=== PATIENT | male | born 1965 | race Caucasian/White ===

== ENCOUNTER → 2018-02-24 11:22 | Outpatient (CLI) | payer BC, SELFPAY ==
[2018-02-24 14:16] LABS: AST(SGOT) 22 U/L (15-37); Alanine Aminotransfer ALT/SGPT 37 U/L (16-61); Anion Gap 10 (5-15); BUN 12 mg/dL (7-18); BUN/Creat Ratio 15.9 RATIO (10-20); Calcium,Total 9.2 mg/dL (8.5-10.1); Chloride 103 mmol/L (98-107); Cholesterol 192 mg/dL (200); Creatinine, Serum 0.76 mg/dL (0.70-1.30); EST Glomerular Filtration Rate 115 mL/min (>60); Est Glom Filt Rate - Afr Amer 140 mL/min (>60); Glucose 114 mg/dL (74-106); High Density Lipoprotein 58 mg/dL; Potassium 3.8 mmol/L (3.5-5.1); Sodium Level 140 mmol/L (136-145); Triglycerides 310 mg/dL; Very Low Density Lipoprotein 62 mg/dL (5-40)
== END ==
PROVIDERS: Family Provider Family Medicine; PCP Family Medicine; Visit Provider Family Medicine
DX: I10 Essential (primary) hypertension (principal); E78.00 Pure hypercholesterolemia, unspecified; Z12.5 Encounter for screening for malignant neoplasm of prostate
CPT/HCPCS: 36415; 80048; 80061; 84153; 84450; 84460; G0103

== ENCOUNTER → 2018-03-04 11:25 | Outpatient (CLI) | payer BC, SELFPAY ==
[2018-03-04 14:43] LABS: Hemoglobin A1c 6.1 % (4.2-6.3)
== END ==
PROVIDERS: Family Provider Family Medicine; PCP Family Medicine; Visit Provider Family Medicine
DX: R73.09 Other abnormal glucose (principal)
CPT/HCPCS: 36415; 83036

== ENCOUNTER 2018-03-13 08:03 | Day surgery (SDC) | payer BC, SELFPAY ==
--- NOTE | 2018-03-13 | LES_PTH ---
PATIENT: JANET SOOD [place] [facility] [place][id number] AGE/SX: 52/M ROOM: RE03/13/[address]: Dr. Clifford Ventura MD : 1965 BED: DIS: 03/13/2018 SPEC #: [id number] RECD: 03/13/18 14:41 STATUS: BRETT REPearl #: [id number] FELICE: 03/13/18 00:[address]: Clifford Ventura DEPT: SURGICAL PATHOLOGY RECD BY: Mervin Tan ENTERED: 03/13/18 14:41 SP TYPE: Lesion OTHR DR: Dr. Cat Paulino MD Tissues: Skin of lip, NOS Procedures: Surgery Specimen Level IV HEADER OPERATION: Excision, lesion, lip PRE-OP DIAGNOSIS: Benign neoplasm of lip TISSUE SUBMITTED: Vascular lip lesion, lower lip MICROSCOPIC DIAGNOSIS Lower lip lesion, biopsy: Solar elastosis and mild hyperkeratosis. AM:jenna 03/16/18 MICROSCOPIC DESCRIPTION Slides are reviewed. GROSS DESCRIPTION Received in fixative is one container labeled with the patient's name and designated vascular lip lesion, lower lip. The specimen consists of a piece of john-pink mucosal tissue measuring 0.5 x 0.3 x 0.1 cm. The entire specimen is submitted in one cassette. / SJ:jenna 03/13/18 TC:5 CPT: 85751
[2018-03-13 08:35] VITALS: BP 142/94; PULSE 70; RESP 16; TEMP 36.6; O2SAT 99; BMI 27.6
[2018-03-13] MEDS: Bacitracin 500 UNITS/GM PACKET (10:15)
--- NOTE | 2018-03-13 10:37 | OP.PCM_ITS ---
Problem List (1) Benign neoplasm of lip Status: Chronic Report of Operation Date of Procedure: 03/13/18 Pre-Operative Diagnosis: Bleeding lesion of lower lip Post-Operative Diagnosis: Vacular malformation lower lip Surgery/Procedure Performed:: Excision of lower lip lesion Description of Surgical Findings:: Eddy is a 52-year-old male presents valuation of a chronic intermittently bleed ing lesion of the left lower lip. He denies any prior trauma or injury to the site. There is no ulceration or pain. He reports that this would bleed quite vigorously shooting blood up onto his bathroom mirror that at times took several hours to stop. Examination showed a punctate and vascular lesion on the left lower lip without ulceration or palpable mass. Given the extensive bleeding after operative excision for both treatment and identification was offered and he is agreeable to proceed. The risks, alternatives, potential benefits, and complications were discussed at length and any questions answered to the patient and/or caregiver's satisfaction. Witnessed informed consent was obtained in the office, and the patient and/or caregiver was agreeable to proceed. Procedure went as follows: The patient was identified in the preoperative holding brought to the operating room where he was positioned on the operative table. The lower lip site was prepped with Betadine prep solution and then injected with 1% lidocaine with 100,000 epinephrine for a total of 2 cc. Just to the left of the midline on the lower lip was a punctate vascular lesion this was then incised in an ellipse 3 x 6 mm in length. Dissection was then carried down deeply to the muscularis layer where the lesion was then clamped at its vascular pedicle and ligated with a 3-0 Vicryl suture. The excision was then sent for pathologic evaluation. The wound was then closed deeply with interrupted 3-0 Vicryl sutures and bacitracin applied to the wound edge. The patient was then returned to recovery having tolerated the procedure well with findings consistent with a vascular malformation of the lower lip pending pathologic evaluation. Type of Anesthesia:: Local Special Medications: none Specimen's removed: lower lip lesion Estimated Blood Loss (mL): 0 mL Fluids Replaced: 0 mL Grafts/Implants Used: none - Complications none - Admit VTE Documentation VTE Present on Admission: No VTE Mechan Device Prophylaxis: None VTE Pharm Prophylaxis ordered?: No Reason prophylaxis not ordered:: Procedure Not Indicated
--- NOTE | 2018-03-13 10:40 | DCINST_ITS ---
- Discharge Diagnoses Current Active Problems: Current Active and Chronic Problems (Last Reviewed 06/20/17 @ 09:00 by Azam Piper) Benign neoplasm of lip (Chronic) You will use the following diet at home:: No restrictions Discharge Activity: Return to Normal Activity Call your doctor if your incision/area has: Continuous Slow Oozing, Foul Smelling Discharge Call your doctor if you observe: Fever of 101 or Higher, Uncontrolled pain Allergies/Adverse Reactions: Allergies No Known Allergies Allergy (Verified 06/20/17 08:59) Medications to take at Discharge Atorvastatin Calcium [Lipitor] 40 mg PO QHS 09/21/15 Primary Care Physician: Cat Paulino MD [Primary Care Provider] - Test Results: Test results from this visit will be discussed in further detail at your follow- up appointment, if applicable. Please Follow Up With: Clifford Ventura MD When: 1 week
[2018-03-13 10:45] VITALS: BP 142/94; BP 149/95; PULSE 69; RESP 14; TEMP 36.8; O2SAT 100
== END 2018-03-13 11:05 | disposition home or self-care (01) ==
LOC: SDC 08:03 → AC 08:04
PROVIDERS: Family Provider Family Medicine; PCP Family Medicine; Referring Provider Otolaryngology; Visit Provider Otolaryngology
PROC: (CPT 11441; principal; 2018-03-13 09:30)
DX: L57.8 Other skin changes due to chronic exposure to nonionizing radiation (principal); L85.9 Epidermal thickening, unspecified
CPT/HCPCS: 11441; 88305

== ENCOUNTER → 2019-01-05 08:06 | Outpatient (CLI) | payer OTHER, SELFPAY ==
[2019-01-05 08:05] VITALS: BMI 29.2
--- NOTE | 2019-01-05 08:08 | RAD_ITS ---
STUDY: X-RAY - LEFT KNEE REASON FOR EXAM: Male, 53 years old. Trauma TECHNIQUE: 4 view(s) of the knee. COMPARISON: None. FINDINGS: Normal visualized distal femur. Normal visualized proximal tibia and fibula. Normal proximal tibiofibular articulation. Normal medial femorotibial compartment. Normal lateral femorotibial compartment. Normal patellofemoral articulation. There is a wire-like foreign body in the soft tissues of the medial distal thigh. RAD/Knee 4 or More Views IMPRESSION: The osseous structures and articular surfaces of the left knee appear within normal limits. There is a wire-like foreign body in the soft tissues of the medial distal thigh. Electronically Signed: Khoa Bennett MD at 17:31 EDT , Service support ,
== END ==
PROVIDERS: Family Provider Family Medicine; PCP Family Medicine; Referring Provider Physician Assistant Surgical; Visit Provider Physician Assistant Surgical
DX: S86.912A Strain of unspecified muscle(s) and tendon(s) at lower leg level, left leg, initial encounter (principal)
CPT/HCPCS: 73564

== ENCOUNTER → 2019-01-12 07:40 | Outpatient (CLI) | payer OTHER, SELFPAY ==
[2019-01-12 07:35] VITALS: BMI 29.2
--- NOTE | 2019-01-12 07:43 | RAD_ITS ---
STUDY: X-RAY - LEFT KNEE REASON FOR EXAM: Joint pain after lifting heavy object. TECHNIQUE: 2 view(s) of the knee. COMPARISON: Radiographs 01/05/2019. FINDINGS: Normal visualized distal femur. Normal visualized proximal tibia and fibula. Normal proximal tibiofibular articulation. Normal medial femorotibial compartment. Normal lateral femorotibial compartment. Normal patellofemoral articulation. There is a metallic foreign body in the medial aspect of the distal thigh as on the prior study. RAD/Knee 1 or 2 Views IMPRESSION: Metallic foreign body. No interval change since 01/05/2019. Electronically Signed: Sixto Parra MD at 8:34 EDT Tel , Service support ,
== END ==
PROVIDERS: Family Provider Family Medicine; PCP Family Medicine; Referring Provider Physician Assistant Surgical; Visit Provider Physician Assistant Surgical
DX: S86.912A Strain of unspecified muscle(s) and tendon(s) at lower leg level, left leg, initial encounter (principal)
CPT/HCPCS: 73560

== ENCOUNTER → 2019-01-21 06:17 | Outpatient (CLI) | payer OTHER, SELFPAY ==
[2019-01-12 07:35] VITALS: BMI 29.2
--- NOTE | 2019-01-21 06:21 | MRI_ITS ---
STUDY: MRI LEFT KNEE REASON FOR EXAM: Medial knee pain since injury 01/04/2019. TECHNIQUE: Standardized fat and water weighted pulse sequences were obtained in all 3 orthogonal planes. COMPARISON: Radiographs 01/12/2019. FINDINGS: There is an oblique tear of the inferior articular surface of the posterior horn/posterior body of the medial meniscus (proton density coronal images 16-18; proton density sagittal image 6). There is mild peripheral subluxation of the medial meniscus. Normal hyaline cartilage of the medial femorotibial compartment. There is mild subchondral bone edema of the medial tibial plateau (T2 coronal images 18, 19), a stress phenomenon. There is a mild sprain of the superficial fibers of the medial collateral ligament (T2 coronal image 18). Normal distal semimembranosus, gracilis and semitendinosus tendons. Normal lateral meniscus. Normal hyaline cartilage of the lateral femorotibial compartment. Normal lateral femoral condyle and tibial plateau. Normal proximal tibiofibular articulation. Normal lateral collateral (fibular) ligament. Normal popliteus tendon. Normal biceps femoris tendon. Normal anterior cruciate ligament (ACL). Normal posterior cruciate ligament (PCL). Normal congruent patellofemoral articulation. There is low-grade chondromalacia patellae (T2 axial image 9). Normal medial and lateral patellar retinaculum. Normal visualized quadriceps tendon. Normal patellar tendon. Normal Hoffa's fat pad. There is a small joint effusion. There is a thickened medial patellar plica (T2 axial images 9-11). There is a small popliteal cyst (T2 sagittal images 5-7). There is mild edema in the anterior subcutis adipose space. The otherwise visualized osseous structures are unremarkable. MRI/Lower Ext Joint Only (Routine) IMPRESSION: Medial meniscal tear. Mild sprain of the medial collateral ligament. Mild subchondral bone edema of the medial tibial plateau, a stress phenomenon. Low-grade chondromalacia patellae. Thickened medial patellar plica. Small joint effusion. Small popliteal cyst. Electronically Signed: Sixto Parra MD at 7:52 EDT Tel , Service support ,
== END ==
PROVIDERS: Family Provider Family Medicine; PCP Family Medicine; Referring Provider Physician Assistant Surgical; Visit Provider Physician Assistant Surgical
DX: S86.912A Strain of unspecified muscle(s) and tendon(s) at lower leg level, left leg, initial encounter (principal)
CPT/HCPCS: 73721

== ENCOUNTER 2019-03-03 10:40 | Day surgery (SDC) | payer OTHER, SELFPAY ==
[2019-02-11 08:57] VITALS: BMI 29.2
--- NOTE | 2019-02-11 10:39 | HP_ITS ---
I have re-examined the patient. There are no clinical changes since date of exam. Intake Vital Signs 02/11/19 Body Mass Index (BMI) 29.2 Intake Visit Reasons: LEFT KNEE Chief Complaint: left knee pain Allergies No Known Allergies Allergy (Verified 01/22/19 07:36) Medications Atorvastatin Calcium [Lipitor] 40 mg PO QHS 09/21/15 [History Confirmed 02/11/19] lisinopril 20 mg tablet PO #90 tab 01/05/19 [History Confirmed 02/11/19] PFSH Medical History (Updated 01/05/19 @ 08:07 by Cara Loera) Hypertension (Chronic) Surgical History (Updated 01/05/19 @ 08:07 by Cara Loera) History of ankle surgery (Acute) S/P cervical spinal fusion (Inactive) Social History (Updated 02/11/19 @ 15:35 by Kami Fraser DO) Smoking Status: Never smoker alcohol intake: current HPI LEFT KNEE: Surgical H&P: Yes Details: Parts of this documentation were recorded by a scribe, this documentation accurately reflects the service provided and the decisions made by me, Kami Fraser DO 02/11/19 1868. JANET SOOD is a 53 year old [facility] patient here today for left knee injury. 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 States that on 01/04/19 he was volunteering and he was lifting a 300 lb man down the stair in a stair chair and he states that when he had all his weight on his leg leg he felt a pop and tearing over the medial side of his knee. [facility] then [facility]. Patient has pain over his medial left knee. Patient has had x-rays and an MRI of his left knee. Denies any PT and denies any injections. Denies numbness, tingling or other associated symptoms. Patient wishes to have a permanent form of relief from his knee pain. ROS Musc Reports joint pain, Reports joint swelling, Denies numbness, Denies radiating pain into limb, Denies stiffness, Denies tingling Skin/Breast Denies redness, Denies lesions, Denies itching, Denies rash, Denies skin swelling Neuro No numbness, No radiating pain, No tingling Ortho Exam Left Knee Skin/Wound: Yes swelling Contralateral Normal: Yes Homans Sign: No Knee ROM: Yes ROM-Extension -20 to 0, No ROM-Flexion 0-140 Examination: Yes med jt line tenderness, Yes Pain with flexion No rales rhonchi wheezing, no abdominal pain, no audible bruits Assessment & Plan Problems 1. Strain of left knee, initial encounter S86.594Z Plan Personally reviewed the MRI and explained that he has a meniscus tear with dain edema from the injury when the bones collide, his treatment option is a knee arthroscopy for debridement or repair depending on the tear location. Will request the surgery, the code for meniscus tear was requested on 01/22/19 by the [facility]. Reviewed the post op aching that may remain after surgery but the sharp pain and catching with twisting should be resolved. Explained the chondroplasty procedure to aid in bone healing and overall health of the knee in the intermediate accountant. We will sign consent today and if the surgery is denied we can have him return to discuss other options. Reviewed the pre-operative plans with the patient. Risks and benefits of the procedure were fully explained, including but not limited to infection, neurovascular injury, continued pain, arthritis, stiffness, need for further surgery, re-injury, DVT, PE, general risks of anesthesia, and loss of limb or life. The patient understands all the risks and does wish to proceed with written consent. Follow up post op or sooner if pain, swelling, numbness or associated symptoms, or concerns develop. All questions answered. Patient in agreement of plan. Coding Level of Care Code Off vis,new,level 3 Diagnoses Strain of left knee, initial encounter S86.912A ??Encounter type: initial encounter 02/11/19 1535 <Electronically signed by Kami green DO> Date _ Kami Fraser DO
[2019-03-03 11:12] VITALS: BP 145/89; PULSE 71; RESP 16; TEMP 36.8; O2SAT 98; BMI 29.0
[2019-03-03] MEDS: Lactated Ringers 1,000 ML 100 ML IV ×2 (11:50→14:05)
[2019-03-03] MEDS: Cefazolin 2 GM in 0.9% Normal Saline 100 ML IV (12:52)
--- NOTE | 2019-03-03 13:12 | RAD_ITS ---
STUDY: X-RAY - LEFT KNEE REASON FOR EXAM: Male, 53 years old. Intraoperative digital documentation images microinternal fixation/subchondral plasty. TECHNIQUE: A single frontal digital documentation view(s) of the knee. COMPARISON: None. FINDINGS: Single view shows surgical pin medially with the tip projected into the medial tibial plateau. The soft tissue structures are unremarkable. RAD/Knee 1 or 2 Views IMPRESSION: Intraoperative digital documentation image as described. Electronically Signed: Hero Galvan MD at 14:55 EST , Service support ,
[2019-03-03] MEDS: Epinephrine (1 mg/ml) 1 MG/ML VIAL (13:25)
[2019-03-03] MEDS: Mupirocin Ointment 22gm Tube 1 APPLIC (14:19)
[2019-03-03] MEDS: Bupiv/Epi 0.25% 30 ML Vial (14:19)
--- NOTE | 2019-03-03 14:35 | PCM.DC.ORTHO ---
Discharge Diet: No Restrictions - nwb left leg for 2 weeks, may remove dressings and apply bandaids to incision sites at pod4, may get incision wet pod4, follow up in 2 weeks, call with concerns, ice/elevate toes above nose/ ankel pumps as much as indicated Discharge Activity: May Not Drive May shower in (days): 1 Ice area for (Minutes): 20 - Every hour while awake. Weight Bearing Status: Weight bearing as tolerated Keep extremity elevated above heart level: Operative Extremity Call your doctor if your incision/area has: Continuous Slow Oozing, Sudden Increased Bleeding, Increased Pain/ Swelling, Increased Redness, Foul Smelling Discharge Call your doctor if you observe: Fever of 101 or Higher, Coldness, Increased Pain, Numbness or Tingling, Change in Color, Calf discomfort Allergies/Adverse Reactions: Allergies No Known Allergies Allergy (Verified 03/03/19 11:11) Medications to take at Discharge Atorvastatin Calcium [Lipitor] 40 mg PO QHS 09/21/15 lisinopril 20 mg tablet 20 mg PO DAILY #90 tab 01/05/19 Ondansetron [Zofran] 8 mg PO Q8H PRN PRN #20 tab 03/03/19 Oxycodone HCl/Acetaminophen [Percocet 5/325] 1 - 2 tablet PO Q6H PRN PRN 5 Days #28 tablet 03/03/19 The following prescriptions were given: Oxycodone HCl/Acetaminophen [Percocet 5/325] 1 - 2 tablet PO Q6H PRN PRN 5 Days #28 tablet PRN Reason: Pain Transmission Status: Sent to [facility] Ondansetron [Zofran] 8 mg PO Q8H PRN PRN #20 tab PRN Reason: Nausea Transmission Status: Pending to [facility]/pharmacy #[id number] Primary Care Physician: Cat Paulino MD [Primary Care Provider] - Test Results: Test results from this visit will be discussed in further detail at your follow-up appointment, if applicable. Please Follow Up With: Kami Fraser, - [phone]
--- NOTE | 2019-03-03 14:36 | OP.PCM_ITS ---
Report of Operation Date of Procedure: 03/03/19 Pre-Operative Diagnosis: left knee med meniscus tear, medial tibial pleateau stress edema Post-Operative Diagnosis: same Surgery/Procedure Performed:: salk, microinternal fixation medial tibial plateau, pmm, stroke program coordinator: Andrei Hooker Type of Anesthesia:: General Anesthesiologist: Ehsan Pollock Drains: see chart for TT Estimated Blood Loss (mL): min Fluids Replaced: 1100cc lr Description of Procedure: Preop note Patient is a 53-year-old male well-known to me. Patient has left knee pain after sustaining a twisting injury to his knee failed conservative treatment MRI confirms medial meniscus tear as well as a stress edema of the medial tibial plateau which results of the medial meniscus tear and his bones hitting together causing the edema where she is also having a considerable amount of pain preoperatively on physical examination. Negative Homans preop. Risk benefits and alternatives were discussed with patient. Risks include but not limited to blood loss, blood clot, infection, neurovascular, failure procedure, loss of life and loss of limb. Patient is aware of like proceed with left knee arthroscopy repair as indicated micro internal fixation of the medial tibial plateau. Operative note Patient seen and examined preoperative holding area. Left knee was marked. Patient brought to the operating room and placed supine on the operating table. Signed, anesthesia, antibiotics were administered. The left knee was prepped and draped usual sterile fashion with tourniquet around his upper thigh. All bony problems well-padded SCDs placed on his contralateral limb. We then marked out our portal placement the left leg was then elevated segmented to his wrist triggers rates her pressure 250 torr. We began our diagnostic arthroscopy by creating anterior lateral portal. Patellofemoral joint had some grade 2 fibrillative changes on the distal pole of patella as well as articulating on the trochlea. The moved to the medial joint, we created an anterior medial portal. The medial femoral condyle medial tibial plateau cartilage was intact and stable to probing. We then probed the medial meniscus which was torn however the root was itself was stable. We used a combination of a basket shaver to resect the unstable pieces then reinserted probe to ensure that we had stable remnant meniscus remaining which we did have. We then moved to the ACL PCL with present within the notch. There were no obvious cartilage defects in the lateral femoral condyle lateral tibial plateau and the lateral meniscus was intact and stable to probing.. Based on preoperative review of the patient's left knee MRI location of the bone marrow lesion consistent with insufficiency fracture of the medial tibial plateau was identified. Preoperative surgical planning allow for determination of the optimal method for assessing the lesion. Intraoperatively image fluoroscopy combined with bone target instruments from [employer] were used to guide surgical instruments into the proximity of the subchondral tibial plateau fracture. [employer] acupoint injection cannula was drilled into the subchondral bone. Standard repair methodology was used to treat the subchondral bone defect in the medial plateau tibial. We used image fluoroscopy was utilized to confirm accurate insertion of the acupoint injection cannula into the subchondral fracture. After insertion fracture stabilization was performed by injecting 1 cc of [employer] bone substitute material into the lateral tibial plateau. Image fluoroscopy was used to monitor the injection process and ensure injection of the bone substitute into the subchondral bone so that the bio material flowed into the fracture site to stabilize the fracture and facilitate fracture repair. We then moved back into the arthroscopy and visualized to make sure that we had no extravasation of the material which we did not. We further irrigated the knee with copious amounts of sterile saline. The portals were closed with interrupted 4-0 nylon stitches. Operative Pharmacy has prescription Told to be nonweightbearing on the left leg for 2 weeks Discussed with family We will give family pictures in 2 weeks Call with increased pain numbness tingling or further issues arise This note was generated with [employer] dictation software. It may contain incorrect words, spelling, and punctuation that were not noted in checking the note before signing.
[2019-03-03 14:38] VITALS: BP 142/81; BP 145/89; PULSE 84; RESP 16; TEMP 36.3; O2SAT 98
[2019-03-03 14:45] VITALS: BP 145/89; BP 147/88; PULSE 81; RESP 16; O2SAT 100
[2019-03-03 14:56] VITALS: BP 136/94; BP 145/89; PULSE 76; RESP 16; TEMP 36.3; O2SAT 100
[2019-03-03] MEDS: HYDROcodone Bitartrate/Apap 5/325 Tablet PO (15:15)
[2019-03-03 17:10] VITALS: BP 133/82; BP 145/89; PULSE 87; RESP 18; TEMP 36.9; O2SAT 99
== END 2019-03-03 17:30 | disposition home or self-care (01) ==
LOC: SDC 10:40 → AC 10:42
PROVIDERS: Family Provider Family Medicine; PCP Family Medicine; Referring Provider Orthopaedic Surgery; Visit Provider Orthopaedic Surgery
PROC: (CPT 29882; principal; 2019-03-03 13:35)
DX: S83.242A Other tear of medial meniscus, current injury, left knee, initial encounter (principal); X50.0XXA Overexertion from strenuous movement or load, initial encounter; Y93.9 Activity, unspecified; Y92.9 Unspecified place or not applicable; I10 Essential (primary) hypertension; E78.00 Pure hypercholesterolemia, unspecified; Z79.899 Other long term (current) drug therapy
CPT/HCPCS: 29855; 29881; 73560; 76000; C1713; J7120; J2405

== ENCOUNTER → 2019-04-14 08:44 | Outpatient (CLI) | payer BC, SELFPAY ==
[2019-04-13 09:41] VITALS: BMI 29.0
[2019-04-14 10:34] LABS: Anion Gap 7 (5-15); BUN 7 mg/dL (7-18); BUN/Creat Ratio 9.2 RATIO (10-20); Calcium,Total 8.6 mg/dL (8.5-10.1); Chloride 105 mmol/L (98-107); Cholesterol 164 mg/dL (200); Creatinine, Serum 0.76 mg/dL (0.70-1.30); EST Glomerular Filtration Rate 114 mL/min (>60); Est Glom Filt Rate - Afr Amer 138 mL/min (>60); Glucose 115 mg/dL (74-106); High Density Lipoprotein 54 mg/dL; Potassium 3.9 mmol/L (3.5-5.1); Sodium Level 141 mmol/L (136-145); Triglycerides 350 mg/dL; Very Low Density Lipoprotein 70 mg/dL (5-40)
== END ==
PROVIDERS: Family Provider Family Medicine; PCP Family Medicine; Referring Provider Nurse Practitioner Family; Visit Provider Nurse Practitioner Family
DX: Z00.00 Encounter for general adult medical examination without abnormal findings (principal)
CPT/HCPCS: 36415; 80048; 80061; 83036

== ENCOUNTER 2019-06-22 08:30 | Outpatient (RCR) | payer OTHER, SELFPAY ==
[2019-03-16 09:47] VITALS: BMI 29.0
--- NOTE | 2019-04-08 14:33 | HP.PTEVAL ---
Patient's Visit Information JANET SOOD is a 53 year old M referred to Physical Therapy by Kami Fraser DO with a diagnosis of L knee internal fixation medial tibia plateau, pmm. Date of Evaluation: 04/08/19 Physical Therapist: TONE Curran - Visit Plan Frequency: 3x /Week Duration: 6 Weeks Plan: Spoke with Dr Leong office and they said to wear the brace until return to Dr Leong on Friday and not to go past 90 degrees until then. Instructed pt to NOT do squats on his own. 3 X / week for 6 weeks for L Knee AROM (to 90 degrees until pt sees Dr leong), mat strengthening, biking, gait training with HEP and modalities for swelling and pain control. - Subjective Findings: Jan 04 he was lifting a 300 lb man and taking him down the stairs and he got to the 4th step and he felt like someone stuck a hot butter knife in his L knee. He went to [facility] [employer] and filled out the paper work and got x-rays and waited a week and did another x-ray and got the MRI and then surgery was Mar 03. They Pt reported that he had posterior medial menisectomy, and internal medial fixation. Today is the first day that he has not worn the brace. He has not wore the brace at home but he did when he goes out. He will possibly go back to light duty on the . Stairs: only 2 to get into the house. He only goes up the steps one at a time. He is shifting his weight more to the R side when he stands up or does stairs he gets a sharp pain across the knee cap. He has been off crutches for a week now. He is doing about 5 miles on exercisecyle with high seat.... just uncomfortable when he gets done and squats. He has increase pain with walking. - Pain L knee AROM Pain Intensity (Out of 10): 1 Pain Intensity Range: 3 - Objective Gait: walks with short and decreased stance time on the L and antalgic gait. L knee AROM: -5 degrees from full extension to 90 degrees flexion. R knee AROM: -2 degrees from full extension and 142 degrees knee flexion. L knee girth measurements: 41.1, 43.5, 46. R knee girth measurements: 38.5, 40.5, 43.5. Pt has difficulty with SLR due to weakness on the L and some discomfort. Pt is not able to do a full QS on the L with a heel prop due to weakness and increase pain. Pt had increase pain with s/l hip abd - Goals Goal 1:: I HEP Goal Time Frame: 4-6 Weeks Goal 2:: Walk with normal gait pattern without antalgic gait by DC Goal Time Frame: 4-6 Weeks Goal 3:: Increase L hip and knee strength to 4/5 knee flex/ext and hip flex, abd and extension Goal Time Frame: 4-6 Weeks Goal 4:: Be able to go up and down stairs recip without a rail and without difficulty Goal Time Frame: 4-6 Weeks - Rehabilitation Potential Rehabilitation Potential: Good - Anticipated Interventions Patient/Client Instruction: Educate patient on: Condition, Plan of Care For the Purpose of:: To decrease pain, To decrease swelling/inflammation, To increase ROM, To improve nutrient delivery to tissue, To improve muscle performance and motor function, To improve ability to perform ADL's, To increase tolerance to activity/condition/position, To improve performance and independence with ADL's, To improve ability of physical actions for home/community/work/leisure, To improve gait and locomotor functions, To improve health of tissue, To decrease soft tissue restriction, To increase flexibility/ROM Therapeutic Exercise to Include: Strength training, Endurance training, Balance training, Flexibilty training, Gait and locomotor training, Passive ROM, Active ROM For the Purpose of:: To decrease pain, To decrease swelling/inflammation, To increase ROM, To improve nutrient delivery to tissue, To improve muscle performance and motor function, To improve ability to perform ADL's, To increase tolerance to activity/condition/position, To improve performance and independence with ADL's, To improve ability of physical actions for home/community/work/leisure, To improve gait and locomotor functions, To improve health of tissue, To decrease soft tissue restriction, To increase flexibility/ROM, To improve balance Functional Training to Include: Gait training For the Purpose of:: To improve gait and locomotor functions, To improve safety with gait IF ES: Yes Cryotherapy (ice pack, ice massage): Yes For the Purpose of:: To decrease pain, To decrease swelling/inflammation, To increase ROM, To improve nutrient delivery to tissue Thank you for the opportunity to evaluate your patient. For Medicare and Medicare HMO plans, please review the plan of care and approve it. It will need to be FAXED BACK to us at [phone] for Medicare purposes. For Medicare only, by signing this I certify the plan of care. Please let me know if there are questions or concerns regarding this plan of care. Physician Signature: Date:
--- NOTE | 2019-05-12 10:39 | HP.PTREVAL_ITS ---
Kami Fraser, DO, It has been my pleasure to treat JANET SOOD over the last 17 visits for L knee internal fixation medial tibia plateau, pmm. Please see the progress note below for an update on the physical therapy plan of care! Subjective: He says that his knee is stiff but he is gaining everyday. He has been having some medial knee pain that comes and goes... and shoots down the front of the calf. He is optimistic.... He is back to work since the 2nd on light duty..... He can do stairs ok... still working on it. Walking: he gets some minimal medial knee twinges.... He reports that he can not kneel down. HEP: ankle pumps, calf stretch, QS with towel, S/L hip abd with CW and CCW... Objective/Function: L knee flexion 113 degrees, -3 degrees knee extension. Stairs: Up and down recip with no hand rail with difficulty with strength ascending the stairs and decreased eccentric control descending the stairs. gait: Walks with decreased stance time on the L LE. LE MMT: L hip ext 4/5, L hip abd 4-/5, L knee ext 4-/5, L knee flex 4/5, L hip flex 4/5 Plan Plan: Encouraged pt to take brace off during PT and exercises. Pt will return to 05-25-19. Will request additional PT for strength including eccentric strength to help descending stairs etc. In the meantime pt will continue to do HEP and try and [place] the bike [place] the fire[place] to keep inflammation and stiffness down. Will await approval to continue formal PT. Goals Goal 1:: I HEP Goal Time Frame: 4-6 Weeks Goal Progress: Goal Met Goal 2:: Walk with normal gait pattern without antalgic gait by DC Goal Time Frame: 4-6 Weeks Goal Progress: Progressing Goal 3:: Increase L hip and knee strength to 4/5 knee flex/ext and hip flex, abd and extension Goal Time Frame: 4-6 Weeks Goal Progress: Progressing Goal 4:: Be able to go up and down stairs recip without a rail and without difficulty Goal Time Frame: 4-6 Weeks Goal Progress: Progressing Anticipated Interventions Patient/Client Instruction: Educate patient on: Condition, Plan of Care For the Purpose of:: To decrease pain, To decrease swelling/inflammation, To increase ROM, To improve nutrient delivery to tissue, To improve muscle performance and motor function, To improve ability to perform ADL's, To increase tolerance to activity/condition/position, To improve performance and independence with ADL's, To improve ability of physical actions for home/community/work/leisure, To improve gait and locomotor functions, To improve health of tissue, To decrease soft tissue restriction, To increase flexibility/ROM Therapeutic Exercise to Include: Strength training, Endurance training, Balance training, Flexibilty training, Gait and locomotor training, Passive ROM, Active ROM For the Purpose of:: To decrease pain, To decrease swelling/inflammation, To increase ROM, To improve nutrient delivery to tissue, To improve muscle performance and motor function, To improve ability to perform ADL's, To increase tolerance to activity/condition/position, To improve performance and independence with ADL's, To improve ability of physical actions for home/community/work/leisure, To improve gait and locomotor functions, To improve health of tissue, To decrease soft tissue restriction, To increase f lexibility/ROM, To improve balance Functional Training to Include: Gait training For the Purpose of:: To improve gait and locomotor functions, To improve safety with gait IF ES: Yes Cryotherapy (ice pack, ice massage): Yes For the Purpose of:: To decrease pain, To decrease swelling/inflammation, To increase ROM, To improve nutrient delivery to tissue Please do not hesitate to contact me at [phone] by phone or if you have questions or concerns regarding this new plan of care! Sincerely, Nina Chen MPT
--- NOTE | 2019-06-22 08:59 | HP.PTDCSUM ---
HP - PT D/C Summary It has been my pleasure to treat JANET SOOD under orders from Dr. Kami Fraser DO, for the diagnosis of L knee internal fixation medial tibia plateau, pmm for a total of 25 visit(s). Discharge Date: 06/22/19 Please see the following information for a summary of their discharge status. - Subjective Subjective: Pt reports that he has this today and an FCE on Friday. He reports that he has intermittant pain and can't tell when it will come on. It is more like a stab/ nerve pinch etc. 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 Dull ache once in awhile up and down stairs.... getting better and descending stairs and controlling it. - Pain L knee AROM Pain Intensity (Out of 10): 0 - Overall Improvement % Improvement: 95 - Objective Objective/Function: Gait: walks with a normal gait pattern. Stairs: up and down recip with no hand rails with possible slight hesitation with eccentric control descending stair leading with R LE. L knee AROM: 0-130 degress knee flexion. B Hip abd, ext, flexion MMT 5/5 and B knee flex and extension MMT 5/5. - Goals Goal 1:: I HEP Goal Progress: Goal Met Goal 2:: Walk with normal gait pattern without antalgic gait by DC Goal Progress: Progressing Goal 3:: Increase L hip and knee strength to 4/5 knee flex/ext and hip flex, abd and extension Goal Progress: Goal Met Goal 4:: Be able to go up and down stairs recip without a rail and without difficulty Goal Progress: Goal Met - Plan Plan: DC PT to FCE and physician reassessment. Pt is highly motivated and has been and will continue to do exercises on his own waiting for FCE and what to do next. - D/C Information Discharge Comments: DC PT to HEP.... If there are questions or concerns regarding this patient's physical therapy, please feel free to call me at [phone]. Thank you for the referral of this patient. Sincerely, Nina Chen, MPT
== END 2019-06-22 19:00 | disposition home or self-care (01) ==
LOC: PT 08:30
PROVIDERS: Family Provider Family Medicine; PCP Family Medicine; Referring Provider Orthopaedic Surgery; Visit Provider Orthopaedic Surgery
DX: S83.242D Other tear of medial meniscus, current injury, left knee, subsequent encounter (principal)
CPT/HCPCS: 97110; 97161; 97164

== ENCOUNTER 2019-06-24 09:59 | Outpatient (RCR) | payer OTHER, BC, SELFPAY ==
[2019-06-10 08:05] VITALS: BMI 29.0
--- NOTE | 2019-06-24 17:24 | HP.OTFCE_ITS ---
HP OT Functional Capacity Eval Date of Evaluation: 06/24/19 - one day FCE - Task Lift Floor (Occasional 1-33% of Day): 75 lbs Floor (Frequent 34-66% of Day): 35 lbs Floor (Constant 67-100% of Day): 14 lbs Floor PDL: Medium-Heavy Knee (Occasional 1-33% of Day): 75 lbs Knee (Frequent 34-66% of Day): 35 lbs Knee (Constant 67-100% of Day): 14 lbs Knee PDL: Medium-Heavy Waist (Occasional 1-33% of Day): 75 lbs Waist (Frequent 34-66% of Day): 38 lbs Waist (Constant 67-100% of Day): 15 lbs Waist PDL: Medium-Heavy Shoulder (Occasional 1-33% of Day): 65 lbs Shoulder (Frequent 34-66% of Day): 35 lbs Shoulder (Constant 67-100% of Day): 14 lbs Shoulder PDL: Medium Overhead (Occasional 1-33% of Day): 50 lbs Overhead (Frequent 34-66% of Day): 25 lbs Overhead (Constant 67-100% of Day): 10 lbs Overhead PDL: Medium Comments: Carry: occassional: 55 lbs. frequent: 27.7 lbs. constant: 11 lbs. - Medium - Work Activity/Posture Bending: Frequent Ability (34-66% of day) Squatting: Frequent Ability (34-66% of day) Kneeling: Occasional Ability (1-33% of day) Reaching out: Frequent Ability (34-66% of day) Reaching up: Frequent Ability (34-66% of day) Sitting: Frequent Ability (34-66% of day) Walking: Frequent Ability (34-66% of day) Standing: Frequent Ability (34-66% of day) - Reference Duration Sedentary Sedentary Light Light Light Medium Medium Medium Heavy Very Heavy Heavy Occasional (0-33% of day) Frequent (34-66% of day) Constant (67-100% of day) 10 # Negligible Negligible 15 # 8 # Negligible 20 # 10# Negli. 35 # 18 # 7 # 50 # 25 # 10 # 75 # 100 # >100 # 38 # 50 # >50 # 15 # 20 # >20 # - Patient Information Height: 1.88 m Weight:: 99.79 kg Hand Dominance: right BP (Medication Use/Usual Values per pt report): Yes - Medical History Medical History Including Restrictions: No medical restrictions provided by referring physician or patient. - Diagnoses Diagnoses: Past medical history: posterior medial meniscectomy with internal medial fixation, pre-hypertension, cervical surgery on C3-C4 (2017) for disc degeneration. Current: Claude was referred for functional capacity evaluation (FCE) due to left lower extremity strain resulting in left medial meniscus tear. He is status post-surgical intervention of posterior medial meniscectomy with internal medical fixation. 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 Medications: - atorvastatin. - lisinopril 20 mg 1x daily - Symptoms Symptoms: Claude noted that symptoms include achiness in knee with occasional sharp shooting pain lasting less than five seconds. Additional, symptoms include swelling with increased physical activities of left knee and ongoing loss of sensation around lateral knee. - Pain Pain: He noted some ongoing stiffness and achiness in left knee with pain being consistently at a 1-2/10 in 10- point pain scale. He noted that he has on occasion sharp shooting like pain that dissipates within a couple of seconds. He noted the sharp pain often does not often exacerbate with certain tasks but comes intermittently and unexpected. [place] Pain Questionnaire is a self-report pain assessment to determine a patient?s accurate psychodynamics for accurate pain rating. A score of 30 or high indicates poor psychodynamics and the greater probability of decreased accuracy with accurate pain reporting. Pre- Opal: 16. Post Opal: 18. Fear Avoidance Questionnaire (FAQ) is a client self- report assessment for 18-64+ that has shown to be reliable and valid for determining increased fear with movements. A score of 96 or higher indicates in creased fear avoidance behaviors. FAQ Pre-testing: total:8. -Fear avoidance belief about work (items 6,7,9,10,11,12,15): 0. -Fear avoidance belief about physical activity (items 2,3,4,5):7. FAQ post testing: total:42. -Fear avoidance belief about work (items 6,7,9,10,11,12,15):21. -Fear avoidance belief about physical activity (items 2,3,4,5): 13. Lower Extremity Functional Scale (LEFS) is a 20-item questionnaire to access a client?s ability to complete certain types of lower extremity activities and movements. A high score indicates increased perceived impairment. Pre-testing LEFS: 56. 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 He noted he works a 40-hour work week in which he is required to stand, sit, and walk frequently around facility. He noted he does have to complete much lifting. 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 He noted he is requir ed to completed frequent standing, walking, squatting, with associated upper extremity movements. 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 - ADLS ADLS: Claude lives in house with . He has one story home with , no basement, with two steps to enter. He is independent in all self-care care tasks which include full-time and volunteer work as well as driving and other leisure pursuits of working on cars. He is back to working full-time at [employer]le[employer] part time job on light duty. He has not returned volunteer position at the [employer] due the inability for him to complete light work while on duty. Noted that he works a nine-hour day in which he has increased achiness in knee by the end of his shift. HE explained edema often present in left lower extremity by the end of the work day. - Physical Examination Physical Examination: The purpose of this functional capacity evaluation (FCE) was to determine Claude's physical ability. 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 Aerobic limiting factor: 85% of max adjust HR= (220-age) *.85= 142 bpm. Calculated max weight: 60% of weight= 132 lbs. Beginning Diagnostics: -Blood pressure: 139/75 mmHg. -Heart rate: 77 bpm. -Oxygen saturation at room air: 97 % ROM: Knee range of motion: - R 0-127, L 3-125. No increase in symptoms with palpation. Completed active movement in supine. During squatting performance completed active squat to 99 degrees. See non- material handling techniques. Strength: Strength measurements completed with use of manual muscle testing and short arm access of dynamometer. Results are as follows: Upper Body: Shoulder flexion: -Dynamometer: R 22.0 lbs , L 25.8 lbs. Shoulder extension: - Dynamometer: R 14.2 , L 17.7 lbs. Shoulder abduction: -Dynamometer: R 26.1 , L 24.4 lbs. Shoulder Internal Rotation: -Dynamometer: R 35.1 , L 25.6 lbs. Shoulder External Rotation: -Dynamometer: R 23.4 , L 22.1 lbs. Elbow flexion: -Dynamometer: R 48.3 , L 56.9 lbs. Elbow extension: -Dynamometer: R 27.4 , L 48.8 lbs. Lower Body: Hip flexion: -Dynamometer: R , L. Hip adduction: -Dynamometer: R 31.0 , L 24.4 lbs. Hip abduction: -Dynamometer: R 23.7 , L 31.1 lbs. Knee Flexion: -Dynamometer: R 80.3 , L 63.4 lbs. Knee extension: -Dynamometer: R 39.9 , L 33.3 lbs. Plantarflexion: -Dynamometer: R 50.2 , L 47.5 lbs. 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 Position 2: R 90 , L 111. Position 3: R 100, L 114. Position 4: R 92 , L 104. Position 5: R 85 , L 83. A coefficient of variation greater than 15 % indicated decreased consistency of effort. Coefficient of variation: R 19%, L 25%. Consistency of Effort: Due to larger hand size results actually consistent due to greater strength at position 3 than typical position 2. Sensation: Sensation testing completed on bilateral knees with monofilament touch test. A score of normal on touch test is 2.83 and within normal range with just some discrepancies for light touch is between 3.22-3.61. The higher the number in more complications related to patient?s ability to perceive touch related sensory stimuli. Proximal Patella: R 2.83, L 2.83. Fibula Head: R 2.83, L 3.61. Medial Joint Area: R 2.83, L 2.83. Tibial Tuberosity: R 2.83, 3.22. Some light sensory loss on left lateral knee. Fine Motor: Completed the Purdue Pegboard test to further determine the patient?s ability to complete 2-3 step tasks, assess fine motor control and general dexterity needed to complete assembly like work. The results are as follows: Right Hand: 9. -Percentile: below 5TH. Left Hand: 12. -Percentile: 10TH. Both Hands: 9. -Percentile:6TH. R+ L+ Both: 30. -percentile: BELOW 1ST. Assembly: 7. -percentile: BELOW 1ST Balance: Functional reach test is used to determine static balance in patients. A score of 15 is normal and less than 10 increases risk of falling. A score of 6 or less significantly increases a patient?s risk of falling. [place] 1: 17. [place] 2: 17. [place] 3: 17.5. Average: 17.2. Functional Gait Assessment (FGA) is a dynamic balance test to determine vestibular functioning and general dynamic balance ability of patient 18-65+. This assessment can be used with clients of various backgrounds to determine functional dynamic balance needed to complete every day work related tasks. 1.Gait Level Surface: 3. 2.Change in Gait Speed: 3. 3.Gait with horizontal head turns:3. 4.Gait with vertical head turns: 3. 5.Gait and pivot turn: 3. 6.Step over obstacle: 2. 7.Gait with narrow base of support: 2. 8.Gait with eyes closed: 3. 9.Ambulating Backwards: 3. 10.Steps: 3. Total Score: 28/maximum score 30. Claude exhibits mean score for age group and static and dynamic balance are within normal range based on peer related groups. - Non Material Handling Activities Bending: Heart rate prior to beginning with use of pulse oximeter: 112 bpm. 3x, 10x in 14.93 seconds, and 10x faster in 9.98 seconds. Completed full bend with equal weightbearing into bilateral lower extremities. He completed with good body mechanics and increased speed for second set of repetitions. No pain behaviors observed. Heart rate posttest with use of pulse oximeter: 115 bpm. Perceived pain: 1/10 Squatting: Heart rate prior to beginning with use of pulse oximeter: 107 bpm. 3x, 10x in 21.33 seconds, and 10x faster in 17.85 seconds. Completed with ability to complete full squat. Measurement of knee flexion in squat on left lower extremity was to 99 degrees. He noted increase in sharp pain, lasting 5 second or less, after hold of squat for measurement. Pain quickly reduced to 1.5/10. Exhibit?s ability to complete equal weightbearing into bilateral lower extremity for task. Mechanical compensations observed with increased trunk flexion causing increased anterior pelvic tilt with increased knee flexion. Hips remained square but increased pressure placement placed on bilateral knees. No increase in pain behaviors observed or noted in regards of distress. Increase in heart rate was observed. Heart rate posttest with use of pulse oximeter: 132 bpm. Perceived pain: 1.5/10 Kneeling: Heart rate prior to beginning with use of pulse oximeter: 106 bpm. 3x, 10x in 24.82 seconds, and 10x faster in 24.78 seconds. Completed with fair body mechanics and ability to complete 75% of full kneel. Kneeling was completed with right lower extremity as lead leg. Mechanical compensations noted with increased trunk lateral leaning to right side for kneel to stand. Completed with a singular loss of balance to left side with ability to self-correct. Increase in heart rate likely due to increased in pain as well as exertion. Would recommend completing occasionally only for about 10% of day of less. Heart rate posttest with use of pulse oximeter: 148 bpm. Perceived pain: 1.5/10 Reaching out/up: Heart rate prior to beginning with use of pulse oximeter: 111 bpm. 3x, 10x in 4.68 seconds, and 10x faster in 3.31 seconds. Heart rate posttest with use of pulse oximeter: 131 bpm. Perceived pain: 1/10. Heart rate prior to beginning with use of pulse oximeter: 119 v. 3x, 10x in 7.32 seconds, and 10x faster in 4.00 seconds. Heart rate posttest with use of pulse oximeter: 112 bpm. Perceived pain: 0-1/10. Completed both reaching out and overhead with appropriate range of motion needed to complete frequently. No mechanical changes observed with tasks. Walking: Heart rate prior to beginning with use of pulse oximeter: 95 bpm. Completed walking 15 minutes at 3.0 mph on [place] treadmill without need for use of bilateral handrails for support. Completed total mileage of .76 of mile. Completed ambulation with very mild antalgic gait to left lower extremity. He exhibited ability to complete walking 100 yards in less than 66 seconds. Based on performance he can complete frequent walking tasks. Completed all walking tasks on level surfaces. Heart rate posttest with use of pulse oximeter: 132 bpm. Perceived pain: he noted 3 x sharp shooting pain that lasted less than 5 seconds; pain for majority of task 1/10. Standing: During evaluation completed a combination of static and dynamic movements for a total of 75 minutes. Claude exhibits some mechanical compensations during more static tasks with load offset from left lower extremity or at times leaning or use of external supports to provide relief for left knee related discomfort. Pain was able to be managed with standing breaks. He exhibits ability to complete frequent standing tasks. Sitting: Claude exhibits ability to complete 30-40 mins of seated tasks. Mechanical compensations of weight shift with flexion and extension of left lower extremity were observed. Exhibits ability to complete frequently sitting tasks. Climbing Stairs: Heart rate prior to beginning with use of pulse oximeter: 83 bpm. Completed ability to complete 150 stairs within 4 minutes with mild antalgic gait to left lower extremity. Completed without need for handrail and use of alternating gait pattern. 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 Exhibits ability to complete stair climbing frequently. Heart rate increased likely from exertion as pain fairly consistent during assessment. Heart rate posttest with use of pulse oximeter: 112 bpm. Perceived pain:1-2/10 - Dynamic Occasional Lifting Capacity Floor Lift: Heart rate prior to beginning with use of pulse oximeter: 138 bpm. Maximum weight: 1x 100 lbs. Occasional Liftinx 75 lbs. Frequent liftinx 38 lbs. Completed floor lift with good body mechanics. Completed with mild anterior flexion of knees but upright posture noted. Completed with equal weightbearing into bilateral lower extremities. No increase in heart rate to indicate distress. Heart rate posttest with use of pulse oximeter: 122 bpm. Perceived pain: 2/10 Knee Lift: Heart rate prior to beginning with use of pulse oximeter: 110 bpm. Maximum weight: 1x 110 lbs. Occasional Liftinx 75 lbs. Frequent liftinx 35 lbs. Completed with good body mechanics of upright posture lower extremity shoulder width apart. Completed with equal weightbearing of bilateral lower extremities. Pain behaviors observed post complete of task with use of external support to stand on right lower extremity to load offset of left lower extremity for break. Heart rate indicative of increased in pain and effort. Discomfort appeared to be increased in left knee based on behaviors. Heart rate posttest with use of pulse oximeter: 134 bpm. Perceived pain: 2/10 Waist Lift: Heart rate prior to beginning with use of pulse oximeter: 119 bpm. Maximum weight: 1x 100 lbs lbs. Occasional Liftinx 75 lbs. Frequent liftinx 38 lbs. Completed with fair body mechanics. Increased anterior flexion at hip level for movement of box. Mechanical compensations observed to complete increased reliance on upper extremity to complete lift. Spinal alignment maintained but decrease of lower extremity activation increased strain on lower back. Increase in heart reflective of exertion. Some pain behaviors noted of weight shifting post task to offset load from left lower extremity during standing break as next lift was set-up. Heart rate posttest with use of pulse oximeter: 126 bpm. Perceived pain: 1.5/10 Shoulder Lift: Heart rate prior to beginning with use of pulse oximeter: 122 bpm. Maximum weight: 1x 85 lbs. Occasional Liftinx 65 lbs. Frequent liftinx 35 lbs. Completed with fair body mechanics. Slight increase in mechanical compensations noted with reliance of upper extremity noted. Pain behaviors observed at end of task with weight shift for load offset from left lower extremity and increased edema note din left lower extremity by patient. Heart rate posttest with use of pulse oximeter: 110 bpm. Perceived pain: 2/10 Overhead Lift: Heart rate prior to beginning with use of pulse oximeter: 106 bpm. Maximum weight: 1x 75 lbs. Occasional Liftinx 50 lbs. Frequent liftinx 25 lbs. Completed with fair body mechanics. Increased mechanical compensations noted with posterior pelvic tilt and extension of spine for load placement. Completed with increased reliance of bilateral upper extremity with increased cervical flexion during task. Heart rate indicative of exertion as no increase in pain noted. Some pain behaviors noted of single leg stance on right lower extremity of rest left lower extremity. Heart rate posttest with use of pulse oximeter: 120 bpm. Perceived pain: 2/10 Carrying: Heart rate prior to beginning with use of pulse oximeter: 111 bpm. Maximum weight: 1x 60 lbs. Occasional Liftinx 55 lbs. Frequent liftinx 27.7 lbs. Completed in with fair mechanics. Mild mechanical compensations noted of slight load offset to left side. Very mild antalgic gait observed to left lower extremity. Grimace noted on faces and noted a couple short lasting sharp- shooting pain. Increase in heart rate indicative of exertion and potentially pain. He noted knee ?was really starting to ache?. Heart rate posttest with use of pulse oximeter: 120 bpm. Perceived pain: 2/10 Comments: Edema Measurements at end of assessment: - Proximal Patella: R 16.5, L 17.5 inches. - Medial Joint Area: R 15.8, L 17.5 inches. - Tibial Tuberosity: R 15.5, L 15.5 inches. Slight increase in edema noted on left affect knee post assessment. Ending Diagnostics: -Blood pressure: 140/76 mmHg. -Heart rate: 91 bpm. -Oxygen saturation at room air: 97 %. Pain: 1/10- after sitting for 7 minutes. He noted sitting helps relieve pain and he would likely ice to help calm symptoms.
--- NOTE | 2019-06-24 17:24 | HP.OTFCE.D ---
FCE D/C Summary - Discharge JANET SOOD was seen for a one time visit for an FCE on 06/24/19 and is discharged.
--- NOTE | 2019-06-25 08:26 | HP.FCE ---
HP OT Functional Capacity Eval Date of Evaluation: 06/24/19 - Task Lift Floor (Occasional 1-33% of Day): 75 lbs Floor (Frequent 34-66% of Day): 35 lbs Floor (Constant 67-100% of Day): 14 lbs Floor PDL: Medium-Heavy Knee (Occasional 1-33% of Day): 75 lbs Knee (Frequent 34-66% of Day): 35 lbs Knee (Constant 67-100% of Day): 14 lbs Knee PDL: Medium-Heavy Waist (Occasional 1-33% of Day): 75 lbs Waist (Frequent 34-66% of Day): 38 lbs Waist (Constant 67-100% of Day): 15 lbs Waist PDL: Medium-Heavy Shoulder (Occasional 1-33% of Day): 65 lbs Shoulder (Frequent 34-66% of Day): 35 lbs Shoulder (Constant 67-100% of Day): 14 lbs Shoulder PDL: Medium Overhead (Occasional 1-33% of Day): 50 lbs Overhead (Frequent 34-66% of Day): 25 lbs Overhead (Constant 67-100% of Day): 10 lbs Overhead PDL: Medium Comments: Carry: occassional: 55 lbs. frequent: 27.7 lbs. constant: 11 lbs. - Medium - Work Activity/Posture Bending: Frequent Ability (34-66% of day) Squatting: Frequent Ability (34-66% of day) Kneeling: Occasional Ability (1-33% of day) Reaching out: Frequent Ability (34-66% of day) Reaching up: Frequent Ability (34-66% of day) Sitting: Frequent Ability (34-66% of day) Walking: Frequent Ability (34-66% of day) Standing: Frequent Ability (34-66% of day) - Reference Duration Sedentary Sedentary Light Light Light Medium Medium Medium Heavy Very Heavy Heavy Occasional (0-33% of day) Frequent (34-66% of day) Constant (67-100% of day) 10 # Negligible Negligible 15 # 8 # Negligible 20 # 10# Negli. 35 # 18 # 7 # 50 # 25 # 10 # 75 # 100 # >100 # 38 # 50 # >50 # 15 # 20 # >20 # - Patient Information Height: 1.88 m Weight:: 99.79 kg Hand Dominance: right BP (Medication Use/Usual Values per pt report): Yes - Medical History Medical History Including Restrictions: No medical restrictions provided by referring physician or patient. - Diagnoses Diagnoses: Past medical history: posterior medial meniscectomy with internal medial fixation, pre-hypertension, cervical surgery on C3-C4 (2017) for disc degeneration (unclear on procedure and not listed in chart). Current: Claude was referred for functional capacity evaluation (FCE) due to left lower extremity strain resulting in left medial meniscus tear. He is status post-surgical intervention of posterior medial meniscectomy with internal medical fixation. 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 Medications: - atorvastatin. - lisinopril 20 mg 1x daily - Symptoms Symptoms: Claude noted that symptoms include achiness in left knee with as occasional sharp shooting pain lasting less than five seconds. Additional, symptoms include swelling with increased physical activities of left knee and ongoing loss of sensation around lateral side of left knee. He is less than six months post operation. - Pain Pain: He noted some ongoing stiffness and achiness in left knee with pain being consistently at a 1-2/10 in a 10- point pain scale. He noted that he has on occasional sharp shooting like pain that dissipates within a couple of seconds. He noted the sharp pain often does not exacerbate with certain tasks but comes intermittently and unexpected. Opal Pain Questionnaire is a self-report pain assessment to determine a patient?s accurate psychodynamics for accurate pain rating. A score of 30 or high indicates poor psychodynamics and the greater probability of decreased accuracy with accurate pain reporting. Pre- Opal: 16. Post Opal: 18. Pain reporting appears to be reliable as indicated with Opal assessment. Fear Avoidance Questionnaire (FAQ) is a client self-report assessment for 18-64+ that has shown to be reliable and valid for determining increased fear with movements. A score of 96 or higher indicates increased fear avoidance behaviors. FAQ Pre-testing: total:8. -Fear avoidance belief about work (items 6,7,9,10,11,12,15): 0. -Fear avoidance belief about physical activity (items 2,3,4,5):7. FAQ post testing: total:42. -Fear avoidance belief about work (items 6,7,9,10,11,12,15):21. -Fear avoidance belief about physical activity (items 2,3,4,5): 13. Lower Extremity Functional Scale (LEFS) is a 20-item questionnaire to access a client?s ability to complete certain types of lower extremity activities and movements. A high score indicates increased perceived impairment. Pre-testing LEFS: 56/80. 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 He noted he works a 40-hour work week in which he is required to stand, sit, and walk frequently around facility. He has been back to full-time work on light duty since April. He noted he does have to complete much lifting at [employer]. 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 He noted he is required to completed frequent standing, walking, squatting, with associated upper extremity movements. 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 - Behavioral Behavioral: Claude was participative with tasks. He was observed to complete mechanical compensations of weight shift off left lower extremity during standing breaks but noted very little change in reported pain. - ADLS ADLS: Claude lives in house with . He has one story home with , no basement, with two steps to enter. He is independent in all self-care care tasks which include full-time and volunteer work as well as driving and other leisure pursuits of working on cars. 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 He has not returned volunteer position at the [employer] due the inability for him to complete light work while on duty. Noted that he works a nine-hour day in which he has increased achiness in knee by the end of his shift. HE explained edema often present in left lower extremity by the end of the work day. - Physical Examination Physical Examination: The purpose of this functional capacity evaluation (FCE) was to determine Claude's physical ability. 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 Aerobic limiting factor: 85% of max adjust HR= (220-age) *.85= 142 bpm. Calculated max weight: 60% of weight= 132 lbs. Beginning Diagnostics: -Blood pressure: 139/75 mmHg. -Heart rate: 77 bpm. -Oxygen saturation at room air: 97 % ROM: Knee range of motion: - R 0-127, L 3-125. No increase in symptoms with palpation. Completed active movement in supine. During squatting performance completed active squat to 99 degrees. See non- material handling for further details. Strength: Strength measurements completed with use of manual muscle testing and short arm access of dynamometer. Results are as follows: Upper Body: Shoulder flexion: -Dynamometer: R 22.0 lbs , L 25.8 lbs. Shoulder extension: -Dynamometer: R 14.2 , L 17.7 lbs. Shoulder abduction: -Dynamometer: R 26.1 , L 24.4 lbs. Shoulder Internal Rotation: -Dynamometer: R 35.1 , L 25.6 lbs. Shoulder External Rotation: -Dynamometer: R 23.4 , L 22.1 lbs. Elbow flexion: -Dynamometer: R 48.3 , L 56.9 lbs. Elbow extension: -Dynamometer: R 27.4 , L 48.8 lbs. Lower Body: Hip flexion: -Dynamometer: R , L. Hip adduction: -Dynamometer: R 31.0 , L 24.4 lbs. Hip abduction: -Dynamometer: R 23.7 , L 31.1 lbs. Knee Flexion: -Dynamometer: R 80.3 , L 63.4 lbs. Knee extension: -Dynamometer: R 39.9 , L 33.3 lbs. Plantarflexion: -Dynamometer: R 50.2 , L 47.5 lbs. Dorsiflexion: -Dynamometer: R 36.5 , L 39.0 lbs Right Lead Burner Helper Strength Average: 89.66 Left Lead Burner Helper Strength Average: 109.66 Right Lateral Pinch Average: 18.00 Right Lateral Pinch Percentile: between 25th and 50th Left Lateral Pinch Average: 25.66 Left Lateral Pinch Percentile: between 75th and 90th Right Tripod Pinch Average: 27.66 Right Tripod Pinch Percentile: 90th + Left Tripod Pinch Average: 23.33 Left Tripod Pinch Percentile: 90th Comments: Five Span Lead Burner Helper testing on Dynamometer: Position 1: R 58 , L 59. Position 2: R 90 , L 111. Position 3: R 100, L 114. Position 4: R 92 , L 104. Position 5: R 85 , L 83. A coefficient of variation greater than 15 % indicated decreased consistency of effort. Coefficient of variation: R 19%, L 25%. Consistency of Effort: Due to larger hand size results actually consistent due to greater strength at position 3 than typical position 2. Sensation: Sensation testing completed on bilateral knees with monofilament touch test. A score of normal on touch test is 2.83 and within normal range with just some discrepancies for light touch is between 3.22-3.61. The higher the number in more complications related to patient?s ability to perceive touch related sensory stimuli. Proximal Patella: R 2.83, L 2.83. Fibula Head: R 2.83, L 3.61. Medial Joint Area: R 2.83, L 2.83. Tibial Tuberosity: R 2.83, 3.22. Some light sensory loss on left lateral knee. Fine Motor: Completed the Purdue Pegboard test to further determine the patient?s ability to complete 2-3 step tasks, assess fine motor control and general dexterity needed to complete assembly like work. The results are as follows: Right Hand: 9. -Percentile: below 5TH. Left Hand: 12. -Percentile: 10TH. Both Hands: 9. -Percentile:6TH. R+ L+ Both: 30. -percentile: BELOW 1ST. Assembly: 7. -percentile: BELOW 1ST Balance: Functional reach test is used to determine static balance in patients. A score of 15 is normal and less than 10 increases risk of falling. A score of 6 or less significantly increases a patient?s risk of falling. [place] 1: 17. [place] 2: 17. [place] 3: 17.5. Average: 17.2. Functional Gait Assessment (FGA) is a dynamic balance test to determine vestibular functioning and general dynamic balance ability of patient 18-65+. This assessment can be used with clients of various backgrounds to determine functional dynamic balance needed to complete every day work related tasks. 1.Gait Level Surface: 3. 2.Change in Gait Speed: 3. 3.Gait with horizontal head turns:3. 4.Gait with vertical head turns: 3. 5.Gait and pivot turn: 3. 6.Step over obstacle: 2. 7.Gait with narrow base of support: 2. 8.Gait with eyes closed: 3. 9.Ambulating Backwards: 3. 10.Steps: 3. Total Score: 28/maximum score 30. Claude exhibits mean score for age group; and static and dynamic balance are within normal range based on peer-related groups. - Non Material Handling Activities Bending: Heart rate prior to beginning with use of pulse oximeter: 112 bpm. 3x, 10x in 14.93 seconds, and 10x faster in 9.98 seconds. Completed full bend with equal weightbearing into bilateral lower extremities. He completed with good body mechanics and increased speed for second set of repetitions. No pain behaviors observed. Heart rate posttest with use of pulse oximeter: 115 bpm. Perceived pain: 1/10 Squatting: Heart rate prior to beginning with use of pulse oximeter: 107 bpm. 3x, 10x in 21.33 seconds, and 10x faster in 17.85 seconds. Completed with ability to complete full squat. Measurement of knee flexion in squat on left lower extremity was to 99 degrees. He noted increase in sharp pain, lasting 5 second or less, after hold of squat for measurement. Pain quickly reduced to 1.5/10. Exhibit?s ability to complete equal weightbearing into bilateral lower extremity for task. Mechanical compensations observed with increased trunk flexion causing increased anterior pelvic tilt with increased knee flexion. Hips remained square but increased pressure placed on bilateral knees. Some pain behaviors of weight shifting side to side noted at standing break post completion of task observed. No increasein signs indicative of distress. Increase in heart rate was observed. Heart rate posttest with use of pulse oximeter: 132 bpm. Perceived pain: 1.5/10 Kneeling: Heart rate prior to beginning with use of pulse oximeter: 106 bpm. 3x, 10x in 24.82 seconds, and 10x faster in 24.78 seconds. Completed with fair body mechanics and ability to complete 75% of full kneel. Kneeling was completed with right lower extremity as lead leg. Mechanical compensations noted with increased trunk lateral leaning to right side for kneel to stand. Completed with a singular loss of balance to left side with ability to self-correct. Increase in heart rate likely due to increased in pain as well as exertion. Would recommend completing occasionally only for about 10% of day or less. Heart rate posttest with use of pulse oximeter: 148 bpm. Perceived pain: 1.5/10 Reaching out/up: Heart rate prior to beginning with use of pulse oximeter: 111 bpm. 3x, 10x in 4.68 seconds, and 10x faster in 3.31 seconds. Heart rate posttest with use of pulse oximeter: 131 bpm. Perceived pain: 1/10. Heart rate prior to beginning with use of pulse oximeter: 119 bpm. 3x, 10x in 7.32 seconds, and 10x faster in 4.00 seconds. Heart rate posttest with use of pulse oximeter: 112 bpm. Perceived pain: 0-1/10. Completed both reaching out and overhead with appropriate range of motion needed to complete frequently. No mechanical changes observed with tasks. Walking: Heart rate prior to beginning with use of pulse oximeter: 95 bpm. Completed walking 15 minutes at 3.0 mph on [place] treadmill without need for use of bilateral handrails for support. Completed total mileage of .76 of mile. Completed ambulation with very mild antalgic gait to left lower extremity. He exhibited ability to complete walking 100 yards in less than 66 seconds. Based on performance he can complete frequent walking tasks. Completed all walking tasks on level surfaces. Heart rate posttest with use of pulse oximeter: 132 bpm. Perceived pain: he noted 3 x sharp shooting pain that lasted less than 5 seconds; pain for majority of task 05/07. Standing: During evaluation completed a combination of static and dynamic movements for a total of 75 minutes. Claude exhibits some mechanical compensations during more static tasks with load offset from left lower extremity or at times leaning or use of external supports to provide relief for left knee related discomfort. Pain was able to be managed with standing breaks. He exhibits ability to complete frequent standing tasks. Sitting: Claude exhibits ability to complete 30-40 mins of seated tasks. Mechanical compensations of weight shift with flexion and extension of left lower extremity were observed. Exhibits ability to complete frequent sitting tasks. Climbing Stairs: Heart rate prior to beginning with use of pulse oximeter: 83 bpm. Completed ability to complete 150 stairs within 4 minutes with mild antalgic gait to left lower extremity. Completed without need for handrail and use of alternating gait pattern. 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 Exhibits ability to complete stair climbing frequently. Heart rate increased likely from exertion as pain fairly consistent during assessment. Heart rate posttest with use of pulse oximeter: 112 bpm. Perceived pain:1-2/10 - Dynamic Occasional Lifting Capacity Floor Lift: Heart rate prior to beginning with use of pulse oximeter: 138 bpm. Maximum weight: 1x 100 lbs. Occasional Liftinx 75 lbs. Frequent liftinx 38 lbs. Completed floor lift with good body mechanics. Completed with mild anterior flexion of knees but upright posture noted. Completed with equal weightbearing into bilateral lower extremities. No increase in heart rate to indicate distress. Heart rate posttest with use of pulse oximeter: 122 bpm. Perceived pain: 2/10 Knee Lift: Heart rate prior to beginning with use of pulse oximeter: 110 bpm. Maximum weight: 1x 110 lbs. Occasional Liftinx 75 lbs. Frequent liftinx 35 lbs. Completed with good body mechanics of upright posture lower extremity shoulder width apart. Completed with equal weightbearing of bilateral lower extremities. Pain behaviors observed post complete of task with use of external support to stand on right lower extremity to load offset of left lower extremity for break. Heart rate indicative of increased in pain and effort. Discomfort appeared to be increased in left knee based on behaviors. Heart rate posttest with use of pulse oximeter: 134 bpm. Perceived pain: 2/10 Waist Lift: Heart rate prior to beginning with use of pulse oximeter: 119 bpm. Maximum weight: 1x 100 lbs lbs. Occasional Liftinx 75 lbs. Frequent liftinx 38 lbs. Completed with fair body mechanics. Increased anterior flexion at hip level for movement of box. Mechanical compensations observed to complete increased reliance on upper extremity to complete lift. Spinal alignment maintained but decrease of lower extremity activation increased strain on lower back. Increase in heart reflective of exertion. Some pain behaviors noted of weight shifting post task to offset load from left lower extremity during standing break as next lift was set-up. Heart rate posttest with use of pulse oximeter: 126 bpm. Perceived pain: 1.5/10 Shoulder Lift: Heart rate prior to beginning with use of pulse oximeter: 122 bpm. Maximum weight: 1x 85 lbs. Occasional Liftinx 65 lbs. Frequent liftinx 35 lbs. Completed with fair body mechanics. Slight increase in mechanical compensations noted with reliance of upper extremity noted. Pain behaviors observed at end of task with weight shift for load offset from left lower extremity and increased edema noted in left lower extremity by patient. Heart rate posttest with use of pulse oximeter: 110 bpm. Perceived pain: 2/10 Overhead Lift: Heart rate prior to beginning with use of pulse oximeter: 106 bpm. Maximum weight: 1x 75 lbs. Occasional Liftinx 50 lbs. Frequent liftinx 25 lbs. Completed with fair body mechanics. Increased mechanical compensations noted with posterior pelvic tilt and extension of spine for load placement. Completed with increased reliance of bilateral upper extremity with increased cervical flexion during task. Heart rate indicative of exertion as no increase in pain noted. Some pain behaviors noted of single leg stance on right lower extremity of rest left lower extremity. Heart rate posttest with use of pulse oximeter: 120 bpm. Perceived pain: 2/10 Carrying: Heart rate prior to beginning with use of pulse oximeter: 111 bpm. Maximum weight: 1x 60 lbs. Occasional Liftinx 55 lbs. Frequent liftinx 27.7 lbs. Completed in with fair mechanics. Mild mechanical compensations noted of slight load offset to left side. Very mild antalgic gait observed to left lower extremity. Grimace noted on faces and noted a couple short lasting sharp- shooting pain. Increase in heart rate indicative of exertion and potentially pain. He noted knee ?was really starting to ache?. Heart rate posttest with use of pulse oximeter: 120 bpm. Perceived pain: 2/10 Comments: Edema Measurements at end of assessment: - Proximal Patella: R 16.5, L 17.5 inches. - Medial Joint Area: R 15.8, L 17.5 inches. - Tibial Tuberosity: R 15.5, L 15.5 inches. Slight increase in edema noted on left affected knee post assessment. Ending Diagnostics: -Blood pressure: 140/76 mmHg. -Heart rate: 91 bpm. -Oxygen saturation at room air: 97 %. Pain: 1/10- after sitting for 7 minutes. He noted sitting helps relieve pain and he would likely ice to help calm symptoms.
== END 2019-06-24 19:00 | disposition home or self-care (01) ==
LOC: OT 09:59
PROVIDERS: PCP Family Medicine; Referring Provider Orthopaedic Surgery; Visit Provider Orthopaedic Surgery
DX: S86.912D Strain of unspecified muscle(s) and tendon(s) at lower leg level, left leg, subsequent encounter (principal); S83.242D Other tear of medial meniscus, current injury, left knee, subsequent encounter
CPT/HCPCS: 97750

== ENCOUNTER → 2020-02-16 09:56 | Outpatient (CLI) | payer BC, SELFPAY ==
[2019-06-10 08:05] VITALS: BMI 29.0
[2020-02-16 12:49] LABS: AST(SGOT) 18 U/L (15-37); Alanine Aminotransfer ALT/SGPT 29 U/L (16-61); Anion Gap 6 (5-15); BUN 10 mg/dL (7-18); Calcium,Total 8.9 mg/dL (8.5-10.1); Chloride 104 mmol/L (98-107); Cholesterol 271 mg/dL (200); Creatinine, Serum 0.83 mg/dL (0.70-1.30); EST Glomerular Filtration Rate 102 mL/min (>60); Est Glom Filt Rate - Afr Amer 124 mL/min (>60); Glucose 103 mg/dL (74-106); High Density Lipoprotein 51 mg/dL; Potassium 4.4 mmol/L (3.5-5.1); Sodium Level 137 mmol/L (136-145); Triglycerides 514 mg/dL
== END ==
PROVIDERS: PCP Family Medicine; Referring Provider Family Medicine; Visit Provider Family Medicine
DX: E78.5 Hyperlipidemia, unspecified (principal); I10 Essential (primary) hypertension
CPT/HCPCS: 36415; 80048; 80061; 84450; 84460

== ENCOUNTER → 2021-02-27 10:08 | Outpatient (CLI) | payer OTHER, SELFPAY ==
[2021-02-27 13:02] LABS: AST(SGOT) 22 U/L (15-37); Alanine Aminotransfer ALT/SGPT 34 U/L (16-61); Anion Gap 7 (5-15); BUN 12 mg/dL (7-18); BUN/Creat Ratio 15.7 RATIO (10-20); Calcium,Total 8.9 mg/dL (8.5-10.1); Chloride 105 mmol/L (98-107); Cholesterol 168 mg/dL (200); Creatinine, Serum 0.76 mg/dL (0.70-1.30); EST Glomerular Filtration Rate 113 mL/min (>60); Est Glom Filt Rate - Afr Amer 137 mL/min (>60); Glucose 116 mg/dL (74-106); High Density Lipoprotein 54 mg/dL; PSA,Total - Annual Screen 0.41 ng/mL (0.00-4.00); Sodium Level 139 mmol/L (136-145); Triglycerides 270 mg/dL; Very Low Density Lipoprotein 54 mg/dL (5-40)
[2021-02-27 18:35] LABS: Hemoglobin A1c 5.6 % (3.8-5.6)
== END ==
PROVIDERS: PCP Family Medicine; Referring Provider Family Medicine; Visit Provider Family Medicine
DX: Z00.00 Encounter for general adult medical examination without abnormal findings (principal); E78.5 Hyperlipidemia, unspecified; I10 Essential (primary) hypertension
CPT/HCPCS: 36415; 80048; 80061; 83036; 84153; 84450; 84460; G0103

== ENCOUNTER → 2021-12-12 | Outpatient (CLI) | payer OTHER, SELFPAY ==
[2021-12-12 12:56] LABS: Hemoglobin A1c 5.7 % (3.8-5.6)
[2021-12-12 13:31] LABS: AST(SGOT) 22 U/L (15-37); Alanine Aminotransfer ALT/SGPT 32 U/L (16-61); Anion Gap 6 (5-15); BUN 10 mg/dL (7-18); BUN/Creat Ratio 14.3 RATIO (10-20); Calcium,Total 8.7 mg/dL (8.5-10.1); Chloride 102 mmol/L (98-107); Cholesterol 196 mg/dL (200); EST Glomerular Filtration Rate 125 mL/min (>60); Est Glom Filt Rate - Afr Amer 151 mL/min (>60); Glucose 98 mg/dL (74-106); High Density Lipoprotein 52 mg/dL; PSA,Total - Annual Screen 0.38 ng/mL (0.00-4.00); Potassium 3.7 mmol/L (3.5-5.1); Sodium Level 136 mmol/L (136-145); Triglycerides 432 mg/dL
== END | disposition home or self-care (01) ==
LOC: MFPLAB 10:45
PROVIDERS: PCP Family Medicine; Referring Provider Family Medicine; Visit Provider Family Medicine
DX: R73.02 Impaired glucose tolerance (oral) (principal); E78.5 Hyperlipidemia, unspecified; I10 Essential (primary) hypertension
CPT/HCPCS: 36415; 80048; 80061; 83036; 84153; 84450; 84460; G0103

== ENCOUNTER → 2022-12-17 | Outpatient (CLI) | payer OTHER, SELFPAY ==
[2022-12-17 13:15] LABS: AST(SGOT) 22 U/L (15-37); Alanine Aminotransfer ALT/SGPT 37 U/L (16-61); Anion Gap 7 (5-15); BUN 10 mg/dL (7-18); BUN/Creat Ratio 12.8 RATIO (10-20); Calcium,Total 9.3 mg/dL (8.5-10.1); Chloride 103 mmol/L (98-107); Cholesterol 193 mg/dL (200); Creatinine, Serum 0.78 mg/dL (0.70-1.30); EST Glomerular Filtration Rate 110 mL/min (>60); Est Glom Filt Rate - Afr Amer 133 mL/min (>60); Glucose 118 mg/dL (74-106); High Density Lipoprotein 55 mg/dL; PSA,Total - Annual Screen 0.52 ng/mL (0.00-4.00); Potassium 4.1 mmol/L (3.5-5.1); Sodium Level 137 mmol/L (136-145); Triglycerides 377 mg/dL; Very Low Density Lipoprotein 75 mg/dL (5-40)
== END | disposition home or self-care (01) ==
LOC: MFPLAB 10:20
PROVIDERS: PCP Family Medicine; Visit Provider Family Medicine
DX: E78.5 Hyperlipidemia, unspecified (principal); Z12.5 Encounter for screening for malignant neoplasm of prostate; I10 Essential (primary) hypertension
CPT/HCPCS: 36415; 80048; 80061; 84153; 84450; 84460; G0103

== ENCOUNTER → 2023-01-07 | Outpatient (CLI) | payer OTHER, SELFPAY ==
--- NOTE | 2023-01-07 | TISS_PTH ---
PATIENT: JANET SOOD LOC: [facility] U#:[id number] AGE/SX: 57/M ROOM: RE01/07/[address]: Dr. Cat Paulino MD : 1965 BED: DIS: 01/07/2023 SPEC #: [id number] RECD: 01/07/23 18:06 STATUS: BRETT BROOKS #: [id number] FELICE: 01/07/23 00:[address]: Cat Paulino DEPT: SURGICAL PATHOLOGY RECD BY: Alexander Donaldson Tissues: Skin of leg, NOS Procedures: Surgery Specimen Level IV HEADER OPERATION: Excision PRE-OP DIAGNOSIS: Seborrheic keratosis TISSUE SUBMITTED: Right posterior thigh MICROSCOPIC DIAGNOSIS Skin lesion of right posterior thigh, shave biopsy: Verrucoid keratosis, inflamed. AM:jenna 01/09/2023 MICROSCOPIC DESCRIPTION Slides are reviewed. GROSS DESCRIPTION Received is one container labeled with the patient's name and not further designated. The specimen consists of an irregular piece of ojhn-white skin measuring 1.0 x 0.7 x 0.2 cm. The specimen is inked, serially sectioned and submitted entirely in one cassette. / SJ:jenna 01/08/2023 TC:5 CPT: 44779
== END | disposition home or self-care (01) ==
PROVIDERS: PCP Family Medicine; Visit Provider Family Medicine
DX: L82.1 Other seborrheic keratosis (principal)
CPT/HCPCS: 88305

== ENCOUNTER → 2023-09-19 | Outpatient (CLI) | payer OTHER, SELFPAY ==
--- NOTE | 2023-09-19 09:56 | RAD_ITS ---
STUDY: X-RAY - LEFT KNEE REASON FOR EXAM: Male, 57 years old. Pain. TECHNIQUE: 5 views of the left knee. COMPARISON: Left knee dated 01/12/2019. FINDINGS: Normal visualized distal femur. Normal visualized proximal tibia and fibula. Normal proximal tibiofibular articulation. Normal medial femorotibial compartment. There is new sclerosis in the medial tibial plateau. Normal lateral femorotibial compartment. Normal patellofemoral articulation. There is an unchanged wire-like metallic foreign body in the medial aspect of the distal thigh as on the prior study. RAD/Knee 4 or More Views IMPRESSION: New sclerosis in the medial tibial plateau. Unchanged wire-like metallic foreign body in the medial distal thigh. Electronically Signed: Augustus Caldera MD at 12:49 EDT ,
== END | disposition home or self-care (01) ==
PROVIDERS: PCP Family Medicine; Referring Provider Family Medicine; Visit Provider Family Medicine
DX: M25.562 Pain in left knee (principal)
CPT/HCPCS: 73564

== ENCOUNTER → 2024-01-02 | Outpatient (CLI) | payer OTHER, SELFPAY ==
[2024-01-02 12:24] LABS: AST(SGOT) 19 U/L (15-37); Alanine Aminotransfer ALT/SGPT 30 U/L (16-61); Anion Gap 7 (5-15); BUN 9 mg/dL (7-18); BUN/Creat Ratio 12.6 RATIO (10-20); Calcium,Total 9.2 mg/dL (8.5-10.1); Chloride 107 mmol/L (98-107); Cholesterol 208 mg/dL (200); Creatinine, Serum 0.71 mg/dL (0.70-1.30); EST Glomerular Filtration Rate 121 mL/min (>60); Est Glom Filt Rate - Afr Amer 146 mL/min (>60); Glucose 107 mg/dL (74-106); High Density Lipoprotein 51 mg/dL; Potassium 3.5 mmol/L (3.5-5.1); Sodium Level 141 mmol/L (136-145); Triglycerides 296 mg/dL; Very Low Density Lipoprotein 59 mg/dL (5-40)
[2024-01-02 12:41] LABS: Protein, Urine (Random) 9.7 mg/dL (<11.9); Protein:Creat Ratio 133 mg/g CRE (0-200)
== END | disposition home or self-care (01) ==
LOC: MFPLAB 10:11
PROVIDERS: PCP Family Medicine; Visit Provider Family Medicine
DX: E78.5 Hyperlipidemia, unspecified (principal); I10 Essential (primary) hypertension; Z12.5 Encounter for screening for malignant neoplasm of prostate
CPT/HCPCS: 36415; 80048; 80061; 82570; 84153; 84156; 84450; 84460; G0103

== ENCOUNTER 2024-04-02 22:42 | Emergency (ER) | payer OTHER, SELFPAY ==
[2024-04-02 22:43] VITALS: BP 168/109; PULSE 86; RESP 16; TEMP 36.8; O2SAT 99; BMI 27.2
--- NOTE | 2024-04-02 23:04 | CT_ITS ---
EXAM: CT CERVICAL SPINE WITHOUT INTRAVENOUS CONTRAST CLINICAL INDICATION: pain -- hx acdf TECHNIQUE: Helically acquired images were obtained of the cervical spine without intravenous contrast. 2D reformatted images were reviewed. This CT exam was performed using one or more of the following dose reduction techniques: automated exposure control, adjustment of the mA and/or kV according to patient size, and/or use of iterative reconstruction technique. COMPARISON: No relevant prior studies available. FINDINGS: VERTEBRAE: See below. DISCS/SPINAL CANAL/NEURAL FORAMINA: Hardware from anterior fusion from C4 through C6. There is left bony neural foraminal narrowing at C3-4. There is right bony neural foraminal narrowing at C6-7. SOFT TISSUES: Unremarkable. No prevertebral soft tissue swelling. LYMPH NODES: Unremarkable. No cervical adenopathy. LUNG APICES: Unremarkable as visualized. Clear. CT/Spine Cervical without Contras IMPRESSION: 1. No acute osseous abnormality cervical spine. 2. Degenerative changes with disc space narrowing and bony neural foraminal narrowing. Electronically Signed: Jose Luis Collins MD at 23:38 EST ,
[2024-04-02] MEDS: oxyCODONE 5 MG Tablet PO (23:13)
[2024-04-02] MEDS: diazePAM 5 MG Tablet PO (23:13)
--- NOTE | 2024-04-02 23:14 | EDS_ITS ---
HPI History of Present Illness Chief Complaint: Other, Pain/Inj Informant: patient and spouse/S.O. Narrative Narrative: Presenting here with spouse for evaluation worsening neck pain for the past 6 7 days. Denies trauma denies new activities. Denies any pain weakness paresthesias of the arms. History of ACDF left side [address] Mehta in [place]. Has taken Motrin today took Flexeril around 7 PM and took 2 tablets prior to arrival. No relief of symptoms. Pain worse with head movement. Also stating pain worse with swallowing with pressure in the back of his neck. No dysphagia. No fevers. [facility] Medical History (Updated 04/03/24 @ 00:[address] Darren Trevizo DO) Hypertension Home Medications ?Medication ?Instructions ?Recorded ?Last Taken ?Type atorvastatin 40 mg tablet 40 mg PO QHS 09/21/15 Unknown History lisinopril 20 1 tab PO DAILY 04/02/24 Unknown History mg-hydrochlorothiazide 12.5 mg tablet diazepam 5 mg tablet 5 mg PO Q8 PRN Muscle Spasm #20 04/03/24 Unknown Rx tabs oxycodone-acetaminophen 5 mg-325 1 tab PO Q6H PRN PRN Pain 3 days 04/03/24 Unknown Rx mg tablet #12 TABLETS Allergy/AdvReac Type Severity Reaction Status Date / Time No Known Allergies Allergy Verified 04/02/24 22:45 Surgical History History of ankle surgery S/P cervical spinal fusion Social History Smoking Status: Never smoker alcohol intake: current ROS ROS ED Constitutional Constitutional ED: Denies chills, fever(s) or sweats Eyes Eyes: Denies change in vision ENT ENT ED: Denies dysphagia or sore throat Cardiovascular Cardiovascular: Denies chest pain, leg edema, palpitations or racing heartbeat Respiratory/Chest Respiratory/Chest: Denies cough, dyspnea or dyspnea on exertion Gastrointestinal Gastrointestinal: Denies abdominal pain, diarrhea, nausea or vomiting Genitourinary Genitourinary ED: Denies dysuria, hematuria or urinary frequency Musculoskeletal Musculoskeletal: Reports neck pain; Denies back pain or extremity pain Integumentary Denies rash or wounds Neurologic Neurologic: Denies headache(s), paresthesias or weakness EXAM Physical Exam Const Vital Signs: 04/02/24 22:43 04/02/24 22:52 04/03/24 00:23 Temperature 98.2 F 98.2 F Temperature Source Oral Pulse Rate 86 75 Respiratory Rate 16 18 Respiratory Effort Normal Non-Labored Respiratory Pattern Normal Blood Pressure 168/109 H 128/85 H Blood Pressure Mean 128 99 Pulse Ox 99 97 Oxygen Delivery Method Room Air Positive well nourished and well developed General Appearance ED: well developed HEENT Reports moist mucous membranes HEENT Narrative: No posterior pharyngeal erythema uvula midline tonsils absent. No trismus. normocephalic and atraumatic Eyes EOMs intact bilaterally and conjunctivae normal General Eye ED: Yes normal appearance of both eyes Neck no lymphadenopathy and supple Neck Narrative: Somatic function upper cervicals right greater than left somatic dysfunction. General: tenderness Chest Wall Chest: Negative for tenderness Resp normal respiratory effort and normal air movement Effort and Inspection: symmetric chest movement; Negative for respiratory distress Cardio regular rate, regular rhythm and no murmurs Peripheral Pulses: pulses 2+ throughout GI normal to inspection, nondistended, normoactive bowel sounds and non-tender Palpation: Negative for guarding or rebound tenderness present Back/Spine no CVA tenderness and no thoracic nor lumbar tenderness Extremity normal to inspection General Extremety ED: Negative for edema or tenderness General Extremity: Negative for edema Neuro oriented x3 and no sensory deficits noted Neuro Narrative: Full range of motion upper extremities. Sensorium / Orientation: awake and alert Skin no rashes or lesions noted and no wounds MDM MDM MDM Narrative Medical decision making narrative: Interventions / MDM: Differential diagnosis: Suspect worsening cervical spine, history of ACDF Diagnosis considered but do not suspect: No cervical radiculopathy My EKG interpretation: N/A Imaging independently reviewed and interpreted by myself: CT cervical spine: Normal soft tissues, stable hardware. Degenerative changes. No fractures. External documents reviewed: N/A Test considered but not ordered:N/A ED course: Patient concerns of mass function cervical spine with torticollis. I performed facilitated positional release the area he had tenderness, more pain with movement. There was some improvement of movement. Treat with Valium, oxycodone, and was sent for CT for further evaluation for surgical history. Reevaluation more improved compared to arrival. States still however uncom fortable. No radicular symptoms. There is no soft tissue abnormalities on the CT. Will redosed with oxycodone, is not a diabetic therefore additional Kenalog for steroids. Prescription muscle relaxers oxycodone use as needed continue ibuprofen 6 or milligrams as needed. Follow-up with his PCP for reevaluation further treatment options. All questions were answered. Re-evaluation: stable Disposition discussed with patient/family/significant other: Patient and significant other Case discussed with consulting clinician: N/A This note was generated with Digital Message Display dictation software. It may contain incorrect words, spelling, and punctuation that were not noted in checking the note before signing. Radiography Diagnostic Testing: Clinical Impression(s) from Imaging Studies Cervical Spine CT 04/02/24 23:04 IMPRESSION: 1. No acute osseous abnormality cervical spine. 2. Degenerative changes with disc space narrowing and bony neural foraminal narrowing. Electronically Signed: Jose Luis Collins MD at 23:38 EST , Discharge Plan Triage Chief Complaint: Other, Pain/Inj ED Provider: Darren Trevizo Dx/Rx/DC Orders Clinical Impression: Neck pain, Torticollis Instructions: Torticollis (Wry Neck), ED Neck Pain Prescriptions: New oxycodone-acetaminophen 5-325 mg tablet 1 tab PO Q6H PRN PRN (Reason: Pain) 3 Days Qty: 12 0RF diazepam [diazepam] 5 mg tablet 5 mg PO Q8 PRN (Reason: Muscle Spasm) Qty: 20 0RF No Action atorvastatin 40 MG tablet 40 mg PO QHS lisinopril-hydrochlorothiazide 20-12.5 mg tablet 1 tab PO DAILY Primary Care Provider: Cat Paulino Referrals: Cat Paulino MD [Primary Care Provider] - 3-5 Days Activity Restrictions/Additional Instructions: CT scan cervical spine stable hardware degenerative changes noted. No fractures. Status post Kenalog. continue ibuprofen 6 mg every 6 hours. Use prescription medicines as prescribed. Follow-up your doctor for reevaluation and further treatment options. Print Language: Ivorian Disposition Disposition: Home, Self Care
[2024-04-03] MEDS: Triamcinolone Acetonide 40 MG/ML Vial IM (00:15)
[2024-04-03] MEDS: oxyCODONE 5 MG Tablet PO (00:15)
[2024-04-03 00:23] VITALS: BP 128/85; PULSE 75; RESP 18; TEMP 36.8; O2SAT 97
== END 2024-04-03 00:41 | disposition home or self-care (01) ==
PROVIDERS: Emergency Provider Emergency Medicine; PCP Family Medicine; Visit Provider Emergency Medicine
DX: M54.2 Cervicalgia (principal); M43.6 Torticollis; I10 Essential (primary) hypertension; Z79.899 Other long term (current) drug therapy
CPT/HCPCS: 72125; 96372; 99284

== ENCOUNTER → 2024-07-15 | Outpatient (CLI) | payer OTHER, SELFPAY ==
[2024-07-15 11:24] LABS: ALB/GLOB Ratio 1.3 RATIO (0.9-2.4); AST(SGOT) 27 U/L (<=37); Alanine Aminotransfer ALT/SGPT 28 U/L (<=46); Albumin, Serum 4.1 g/dL (3.5-5.0); Alkaline Phosphatase 69 U/L (40-129); Anion Gap 12 (5-15); BUN 7 mg/dL (4-19); BUN/Creat Ratio 11.6 RATIO (10-20); Calcium,Total 9.2 mg/dL (7.6-11.0); Carbon Dioxide 24.9 mmol/L (21.0-32.0); Chloride 102 mmol/L (98-108); Creatinine, Serum 0.64 mg/dL (0.70-1.20); EST Glomerular Filtration Rate 110 (>60); Globulin 3.1 g/dL (2.2-4.2); Glucose 114 mg/dL (70-99); Potassium 3.8 mmol/L (3.3-5.1); Protein, Total 7.2 g/dL (5.9-8.4); Sodium Level 138 mmol/L (133-145); Total Bilirubin 0.29 mg/dL (0.00-1.30)
[2024-07-15 11:43] LABS: Hemoglobin A1c 6.1 % (<=5.6)
[2024-07-15 12:04] LABS: Cholesterol 190 mg/dL (<=200); High Density Lipoprotein 49 mg/dL; Low Density Lipoprotein Calc. 89 mg/dL; Triglycerides 260 mg/dL; Very Low Density Lipoprotein 52 mg/dL (5-40)
== END | disposition home or self-care (01) ==
LOC: MTLAB 07:11
PROVIDERS: PCP Family Medicine; Referring Provider Nurse Practitioner Family; Visit Provider Nurse Practitioner Family
DX: E78.5 Hyperlipidemia, unspecified (principal); I10 Essential (primary) hypertension
CPT/HCPCS: 36415; 80053; 80061; 83036

== ENCOUNTER → 2024-10-05 | Outpatient (CLI) | payer OTHER, SELFPAY ==
--- NOTE | 2024-10-05 10:32 | RAD_ITS ---
PROCEDURE: ANKLE MIN 3 VIEWS 10/05/2024 REASON FOR EXAM: LEFT ANKLE INJURY TECHNIQUE: 3 views of the left ankle COMPARISON: None. RAD/Ankle min 3 Views IMPRESSION: On lateral imaging, a moderate inferior calcaneal spur is seen. Normal contour of the Achilles tendon is noted. No ankle joint effusion is identified. Minimal degenerative changes are seen in the ankle joint, without significant j oint narrowing. No fracture or dislocation is evident. Reading Location: [address]
== END | disposition home or self-care (01) ==
LOC: MTRAD 10:19
PROVIDERS: PCP Family Medicine; Referring Provider Family Medicine; Visit Provider Family Medicine
DX: M25.572 Pain in left ankle and joints of left foot (principal)
CPT/HCPCS: 73610

== ENCOUNTER → 2025-01-07 | Outpatient (CLI) | payer OTHER, SELFPAY ==
[2025-01-07 11:34] LABS: PSA,Total - Annual Screen 0.47 ng/mL (0.02-4.00)
== END | disposition home or self-care (01) ==
PROVIDERS: PCP Family Medicine
DX: Z12.5 Encounter for screening for malignant neoplasm of prostate (principal)
CPT/HCPCS: 36415; 84153; G0103

== ENCOUNTER → 2025-01-26 | Outpatient (CLI) | payer OTHER, SELFPAY ==
[2025-01-26 11:02] LABS: AST(SGOT) 24 U/L (<=37); Alanine Aminotransfer ALT/SGPT 21 U/L (<=46); Albumin, Serum 4.4 g/dL (3.5-5.0); Alkaline Phosphatase 66 U/L (40-129); Anion Gap 14 (5-15); BUN 11 mg/dL (4-19); BUN/Creat Ratio 14.6 RATIO (10-20); Calcium,Total 9.3 mg/dL (7.6-11.0); Carbon Dioxide 22.9 mmol/L (21.0-32.0); Chloride 103 mmol/L (98-108); Globulin 2.9 g/dL (2.2-4.2); Glucose 112 mg/dL (70-99); Potassium 4.1 mmol/L (3.3-5.1); Uric Acid 9.0 mg/dL (3.5-7.2)
== END | disposition home or self-care (01) ==
LOC: MTLAB 08:45
PROVIDERS: PCP Family Medicine; Referring Provider Podiatrist; Visit Provider Podiatrist
DX: M10.471 Other secondary gout, right ankle and foot (principal)
CPT/HCPCS: 36415; 80053; 84550